=== PATIENT | male | born 1985 | race Asian ===

== ENCOUNTER 2018-07-15 17:00 | Emergency (ER) | payer OTHER ==
--- NOTE | 2018-07-15 18:11 | ED Physician Documentation ---
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 states no health advisories etc his is here with strep (her rapid strep is + her flu swab is neg) today he also has MUSA myalgias fatigue mild cough and a sore throat Review of Systems Constitutional: reports: Fever, Myalgias, Fatigue Throat: reports: Sore throat Respiratory: reports: Cough GI: denies: Vomiting, Diarrhea Immunocompromised: denies: Immunocompromised PD PAST MEDICAL HISTORY - Past Medical History Cardiovascular: None Respiratory: Sleep apnea Endocrine/Autoimmune: Type 2 diabetes GI: None : None HEENT: None Psych: None Musculoskeletal: None Derm: None - Past Surgical History Past Surgical History: Yes - Present Medications Home Medications: Ambulatory Orders Medication Instructions Recorded Confirmed Cyclobenzaprine [Flexeril] 10 mg PO TID PRN #20 tablet 02/08/16 Fluticasone [Flonase] 1 spray IN DAILY 02/08/16 02/08/16 metFORMIN [Glucophage] 500 mg PO DAILY 02/08/16 02/08/16 oxyCODONE/ACET 5/325 [Percocet 5 1 - 2 each PO Q6H PRN #14 tablet 02/08/16 mg/325 mg] Amoxicillin 500 mg PO Q8HR #30 capsule 07/15/18 - Allergies Allergies/Adverse Reactions: Allergies Allergy/AdvReac Type Severity Reaction Status Date / Time No Known Drug Allergies Allergy Verified 07/15/18 17:37 - Social History Does the pt smoke?: Yes Smoking Status: Current every day smoker Does the pt drink ETOH?: Yes Does the pt have substance abuse?: No - Immunizations Immunizations: TDAP current <10years - POLST Patient has POLST: No PD ED PE NORMAL - Vitals Vital signs reviewed: Yes - General General: Alert and oriented X 3 - HEENT HEENT: PERRL, Ears normal. No: Pharynx benign (mild erythema) - Neck Neck: Supple, no meningeal sign - Cardiac Cardiac: RRR - Respiratory Respiratory: No respiratory distress, Clear bilaterally - Abdomen Abdomen: Soft, Non tender Results - Vitals Vitals: Vital Signs - 24 hr 07/15/18 17:36 Temperature 36.2 C L Heart Rate 77 Respiratory 20 Rate Blood Pressure 131/72 H O2 Saturation 98 Oxygen O2 Source Room air PD MEDICAL DECISION MAKING - ED course ED course: with + strep pt checked in when her results were + he likely has also will rx amox but asked him to call me in an hr or so to confirm he needs it Departure - Departure Disposition: 01 Home, Self Care Clinical Impression: Pharyngitis Qualifiers: Pharyngitis/tonsillitis etiology: unspecified etiology Qualified Code(s): J02.9 - Acute pharyngitis, unspecified Condition: Good Instructions: ED Strep Pharyngitis Poss Follow-Up: [facility] [Provider Group] Prescriptions: Amoxicillin 500 mg PO Q8HR #30 capsule Comments: I suspect you have strep throat like your I have prescribed amoxicillin But please don't take it until you call to confirm your test is also positive Rest and drink plenty of fluids Motrin and tylenol for fever pain Follow up at [place] as needed Return if worse Forms: Activity restrictions
[2018-07-15 18:28] VITALS: BP 130/70
== END 2018-07-15 18:27 | disposition home or self-care (01) ==
LOC: ED 17:00
DX: J02.9 Acute pharyngitis, unspecified (principal); E11.9 Type 2 diabetes mellitus without complications; F17.200 Nicotine dependence, unspecified, uncomplicated; Z79.84 Long term (current) use of oral hypoglycemic drugs
CPT/HCPCS: 87070; 87430; 99283

== ENCOUNTER 2019-05-22 07:47 | Emergency (ER) | payer OTHER ==
[2019-05-22 08:38] LABS: ALBUMIN 4.5 g/dL (3.2-5.5); ALBUMIN/GLOBULIN RATIO 1.3 (1.0-2.2); BILIRUBIN,TOTAL 0.6 mg/dL (0.2-1.0); CALCIUM 9.4 mg/dL (8.5-10.3); CREATININE 0.8 mg/dL (0.6-1.2); TOTAL PROTEIN 7.9 g/dL (6.7-8.2)
[2019-05-22 08:46] LABS: BASOPHILS # (AUTO) 0.1 10^3/uL (0.0-0.1); BASOPHILS % (AUTO) 0.4 %; EOSINOPHILS # (AUTO) 0.5 10^3/uL (0.0-0.7); EOSINOPHILS % (AUTO) 3.6 %; HGB - HEMOGLOBIN 15.4 g/dL (14.0-18.0); LYMPHOCYTES # (AUTO) 1.7 10^3/uL (1.5-3.5); LYMPHOCYTES % (AUTO) 12.6 %; MEAN CORPUSCULAR HEMOGLOBIN 24.2 pg (27.0-31.0); MEAN CORPUSCULAR VOLUME 73.3 fL (80.0-94.0); MEAN PLATELET VOLUME 9.3 fL (7.4-11.4); MONOCYTES # (AUTO) 0.7 10^3/uL (0.0-1.0); MONOCYTES % (AUTO) 5.2 %; NEUTROPHILS # (AUTO) 10.3 10^3/uL (1.5-6.6); PLT - PLATELET COUNT 235 10^3/uL (130-450); RED BLOOD COUNT 6.36 10^6/uL (4.70-6.10); RED CELL DISTRIBUTION WIDTH 14.1 % (12.0-15.0); WHITE BLOOD COUNT 13.2 x10^3/uL (4.8-10.8)
[2019-05-22 09:27] LABS: PLATELET MORPHOLOGY NORMAL APPEARANCE (NORMAL)
[2019-05-22 09:28] LABS: PLATELET ESTIMATE, MANUAL NORMAL (130-450,000) (NORMAL); RBC MORPHOLOGY (MULTIPLE) NORMAL APPEARANCE (NORMAL)
[2019-05-22] MEDS ORDERED: SODIUM CHLORIDE 0.9% 1,000 ML IV ONE ×2 (09:49→10:40)
[2019-05-22] MEDS ORDERED: DIPHENOX/ATROPINE 2.5/0.025 MG TABLET PO STA (09:49)
[2019-05-22] MEDS ORDERED: KETOROLAC 30 MG/ML VIAL IVP STA (09:49)
[2019-05-22] MEDS ORDERED: ONDANSETRON 4 MG/2 ML VIAL IVP STA (09:49)
[2019-05-22] MEDS ORDERED: ALBUTEROL NEB 2.5 MG/3 ML INH STA ×2 (09:50→10:40)
[2019-05-22] MEDS ORDERED: BENZONATATE 100 MG CAPSULE PO STA (09:51)
[2019-05-22] MEDS ORDERED: DEXAMETHASONE 10 MG/ML VIAL IVP STA (09:51)
--- NOTE | 2019-05-22 10:22 | XRAY Report ---
Reason: dyspnea/ cough Procedure Date: 05/22/2019 Accession Number: [id number] / [id number] Procedure: XR - Chest 2 View X-Ray CPT Code: 98155 FULL RESULT: EXAM: CHEST RADIOGRAPHY EXAM DATE: 05/22/2019 10:09 AM. CLINICAL HISTORY: Dyspnea/ cough. COMPARISON: CHEST 2 VIEW PA/LAT 08/16/2015 12:44 AM. TECHNIQUE: 2 views. FINDINGS: Lungs/Pleura: No focal opacities evident. No pleural effusion. No pneumothorax. Normal volumes. Mediastinum: Heart and mediastinal contours are unremarkable. Other: Cervical spine prosthetic disk noted. IMPRESSION: Normal 2-view chest radiography. RADIA
[2019-05-22 10:32] LABS: BILIRUBIN,URINE NEGATIVE (NEGATIVE); GLUCOSE, URINE (UA) 100 mg/dL (NEGATIVE); KETONES,URINE (UA) NEGATIVE (NEGATIVE); LEUKOCYTE ESTERASE, URINE NEGATIVE (NEGATIVE); NITRITE,URINE NEGATIVE (NEGATIVE); OCCULT BLOOD,URINE NEGATIVE (NEGATIVE); PH,URINE 5.5 PH (5.0-7.5); PROTEIN,URINE NEGATIVE (NEGATIVE); UROBILINOGEN,URINE 0.2 (NORMAL) E.U./dL (NORMAL)
[2019-05-22 10:33] LABS: CLARITY,URINE CLEAR (CLEAR)
--- NOTE | 2019-05-22 11:39 | ED Physician Documentation ---
PD HPI URI - Stated complaint Stated Complaint: SOA/PX/V - Chief complaint Chief Complaint: Abd Pain - History obtained from History obtained from: Patient - History of Present Illness Timing - onset: How many days ago (2-3) Timing duration: Days (2-3) Timing details: Abrupt onset, Still present Associated symptoms: Fever, Chills, Nasal congestion, Dry cough, Dyspnea, NVD Contributing factors: No: Sick contact, Travel, Immunocompromised, COPD / asthma Similar symptoms before: Has not had sx before Recently seen: Not recently seen Review of Systems Constitutional: reports: Fever, Chills, Myalgias, Fatigue Nose: reports: Congestion Throat: denies: Sore throat Cardiac: denies: Chest pain / pressure Respiratory: reports: Dyspnea, Cough, Wheezing GI: reports: Nausea, Vomiting, Diarrhea. denies: Abdominal Pain : denies: Dysuria, Frequency Musculoskeletal: denies: Neck pain, Back pain Neurologic: reports: Generalized weakness, Headache (since last night). denies: Near syncope (but feeling lightheaded with standing since last evening) PD PAST MEDICAL HISTORY - Past Medical History Cardiovascular: None Respiratory: Sleep apnea Endocrine/Autoimmune: Type 2 diabetes GI: None : None HEENT: None Psych: None Musculoskeletal: None Derm: None - Past Surgical History Past Surgical History: Yes - Present Medications Home Medications: Ambulatory Orders Medication Instructions Recorded Confirmed Fluticasone [Flonase] 1 spray IN DAILY 02/08/16 02/08/16 metFORMIN [Glucophage] 500 mg PO DAILY 02/08/16 02/08/16 Albuterol Sulf [Ventolin Hfa 2 - 3 puffs INH Q4HR PRN #1 inhaler 05/22/19 Inhaler] Benzonatate [Tessalon Perle] 100 mg PO TID PRN #25 capsule 05/22/19 Ondansetron Odt [Zofran] 4 mg TL Q6H PRN #15 tablet 05/22/19 Sitagliptin Phosphate [Januvia] 25 mg PO 05/22/19 dexAMETHasone [Decadron] 4 mg PO DAILY #7 tablet 05/22/19 - Allergies Allergies/Adverse Reactions: Allergies Allergy/AdvReac Type Severity Reaction Status Date / Time No Known Drug Allergies Allergy Verified 05/22/19 07:56 - Social History Does the pt smoke?: Yes Smoking Status: Current every day smoker Does the pt drink ETOH?: Yes Does the pt have substance abuse?: No - Immunizations Immunizations: TDAP current <10years - POLST Patient has POLST: No PD ED PE NORMAL - Vitals Vital signs reviewed: Yes - General General: Alert and oriented X 3, No acute distress, Well developed/nourished - HEENT HEENT: Pharynx benign. No: Moist mucous membranes - Neck Neck: Supple, no meningeal sign, No adenopathy - Cardiac Cardiac: RRR, No murmur - Respiratory Respiratory: No: Clear bilaterally (no coarse sounds, but has wheezing diffusely) - Abdomen Abdomen: Soft, Non tender - Back Back: No CVA TTP - Derm Derm: Normal color, Warm and dry - Extremities Extremities: No tenderness to palpate, Normal ROM s pain - Neuro Neuro: Alert and oriented X 3, No motor deficit, Normal speech Results - Vitals Vitals: Vital Signs - 24 hr 05/22/19 05/22/19 05/22/19 10:10 10:33 11:05 Temperature Heart Rate 89 96 89 Respiratory 16 16 16 Rate Blood Pressure 132/63 H O2 Saturation 95 05/22/19 05/22/19 11:38 12:07 Temperature 36.7 C 36.9 C Heart Rate 99 91 Respiratory 18 16 Rate Blood Pressure 123/66 130/82 H O2 Saturation 96 97 Oxygen O2 Source Room air - Labs Labs: Laboratory Tests 05/22/19 05/22/19 05/22/19 08:17 08:17 10:17 WBC 13.2 H RBC 6.36 H Hgb 15.4 Hct 46.6 MCV 73.3 L MCH 24.2 L MCHC 33.0 RDW 14.1 Plt Count 235 MPV 9.3 Neut # (Auto) 10.3 H Lymph # (Auto) 1.7 [place] # (Auto) 0.7 Eos # (Auto) 0.5 Baso # (Auto) 0.1 Absolute Nucleated RBC 0.00 Nucleated RBC % 0.0 Manual Slide Review Indicated WBC Morphology NORMAL APPEARANCE Platelet Estimate NORMAL (130-450,000) Platelet Morphology NORMAL APPEARANCE RBC Morph Micro Appear NORMAL APPEARANCE Sodium 135 Potassium 3.5 Chloride 97 L Carbon Dioxide 25 Anion Gap 13.0 BUN 12 Creatinine 0.8 Estimated GFR (MDRD) 111 Glucose 139 H Calcium 9.4 Total Bilirubin 0.6 AST 33 ALT 59 Alkaline Phosphatase 50 Total Protein 7.9 Albumin 4.5 Globulin 3.4 Albumin/Globulin Ratio 1.3 Lipase 33 Urine Color YELLOW Urine Clarity CLEAR Urine pH 5.5 Ur Specific [place] 1.025 Urine Protein NEGATIVE Urine Glucose (UA) 100 H Urine Ketones NEGATIVE Urine Occult Blood NEGATIVE Urine Nitrite NEGATIVE Urine Bilirubin NEGATIVE Urine Urobilinogen 0.2 (NORMAL) Ur Leukocyte Esterase NEGATIVE Ur Microscopic Review NOT INDICATED Urine Culture Comments NOT INDICATED Influenza A (Rapid) Influenza B (Rapid) 05/22/19 10:17 WBC RBC Hgb Hct MCV MCH MCHC RDW Plt Count MPV Neut # (Auto) Lymph # (Auto) [place] # (Auto) Eos # (Auto) Baso # (Auto) Absolute Nucleated RBC Nucleated RBC % Manual Slide Review WBC Morphology Platelet Estimate Platelet Morphology RBC Morph Micro Appear Sodium Potassium Chloride Carbon Dioxide Anion Gap BUN Creatinine Estimated GFR (MDRD) Glucose Calcium Total Bilirubin AST ALT Alkaline Phosphatase Total Protein Albumin Globulin Albumin/Globulin Ratio Lipase Urine Color Urine Clarity Urine pH Ur Specific [place] Urine Protein Urine Glucose (UA) Urine Ketones Urine Occult Blood Urine Nitrite Urine Bilirubin Urine Urobilinogen Ur Leukocyte Esterase Ur Microscopic Review Urine Culture Comments Influenza A (Rapid) Negative Influenza B (Rapid) Negative - Rads (name of study) chest xray Radiology: Prelim report reviewed (no infiltrates), EMP read contemporaneously, See rad report PD MEDICAL DECISION MAKING - ED course Complexity details: re-evaluated patient (feeling improved with IV fluids, meds, and resp nebulizer. ), considered differential (seems flu like with wheezing respiratory component. ), d/w patient Departure - Departure Disposition: 01 Home, Self Care Clinical Impression: Viral illness, Wheezing Condition: Stable Record reviewed to determine appropriate education?: Yes Instructions: ED URI Viral W Wheezing Follow-Up: [facility] [Provider Group] Prescriptions: Albuterol Sulf [Ventolin Hfa Inhaler] 2 - 3 puffs INH Q4HR PRN #1 inhaler PRN Reason: Shortness Of Air/Wheezing Benzonatate [Tessalon Perle] 100 mg PO TID PRN #25 capsule PRN Reason: Cough dexAMETHasone [Decadron] 4 mg PO DAILY #7 tablet Ondansetron Odt [Zofran] 4 mg TL Q6H PRN #15 tablet PRN Reason: Nausea / Vomiting Comments: Frequent fluids and stay well-hydrated. Tylenol or ibuprofen as needed for fevers and pains. Use Decadron steroid daily for a week to help with inflammation of airways and generally. This should decrease cough and wheezing and also general body aches. Use the albuterol inhaler 2 to 3 puffs 4 times a day for the next week and extra times as needed for wheezing. Ondansetron if needed for nausea. Tessalon if needed for cough. This sounds like a flulike illness though your flu test itself was negative. I would presume a viral illness at this point and expected to be improving over the next few days especially with the above medications. Recheck if not improved over the next 2 to 3 days and return sooner if worsening in particular with breathing. Rest for the next day or 2 off work. Forms: Activity restrictions Discharge Date/Time: 05/22/19 12:10
[2019-05-22 12:08] VITALS: BP 130/82
== END 2019-05-22 12:10 | disposition home or self-care (01) ==
LOC: ED 07:47
DX: B34.9 Viral infection, unspecified (principal); R06.2 Wheezing; E11.9 Type 2 diabetes mellitus without complications; F17.200 Nicotine dependence, unspecified, uncomplicated; Z79.84 Long term (current) use of oral hypoglycemic drugs
CPT/HCPCS: 36415; 71046; 80053; 81003; 83690; 85025; 87275; 87276; 94640; 94664; 96374; 96375; 99284; A9270; 81001; 87086